=== PATIENT | female | born 1955 | race Caucasian/White ===

== ENCOUNTER 2017-06-11 12:33 | Outpatient (CLI) | payer BC | END 2017-06-11 13:06 | LOC: ACC 12:33 | DX: I48.91 Unspecified atrial fibrillation (principal); Z79.01 Long term (current) use of anticoagulants; Z51.81 Encounter for therapeutic drug level monitoring | CPT/HCPCS: G0463 ==

== ENCOUNTER 2017-07-11 13:19 | Outpatient (CLI) | payer BC | END 2017-07-11 13:56 | LOC: ACC 13:19 | DX: I48.91 Unspecified atrial fibrillation (principal); Z79.01 Long term (current) use of anticoagulants; Z51.81 Encounter for therapeutic drug level monitoring | CPT/HCPCS: G0463 ==

== ENCOUNTER 2017-08-06 12:32 | Outpatient (CLI) | payer BC | END 2017-08-06 15:47 | LOC: ACC 12:32 | DX: I48.91 Unspecified atrial fibrillation (principal); Z79.01 Long term (current) use of anticoagulants; Z51.81 Encounter for therapeutic drug level monitoring ==

== ENCOUNTER 2017-09-24 12:34 | Outpatient (CLI) | payer BC | END 2017-09-24 16:12 | LOC: ACC 12:34 | DX: I48.91 Unspecified atrial fibrillation (principal); Z79.01 Long term (current) use of anticoagulants; Z51.81 Encounter for therapeutic drug level monitoring | CPT/HCPCS: G0463 ==